=== PATIENT | female | born 1965 | race Caucasian/White ===

== ENCOUNTER 2017-06-26 15:10 | Emergency (ER) | payer OTHER ==
[~2017-06-26] VITALS: Ht 157.5 cm; Wt 58.3 kg
[~2017-06-26 15:10] MED LIST: AMOXICILLIN500 M1 PO; CEPHALEXIN500 M2 PO; ESKALITH300 M1 PO; HYDROCODONE-AP1 EA10 PO; MAGNESIUM250 MG PO; MICRONOR0.35 MG PO; NEURONTIN300 MG PO; REQUIP0.5 MG PO; SILVADENE20 GM TP; TRAZODONE HCL50 MG PO; VIT B1; VITAMIN D31000 UNIT PO; VITAMINS; WELLBUTRIN XL300 MG PO
[2017-06-26] MEDS ORDERED: MOTRIN800 MG PO (19:12)
[2017-06-26 20:20] VITALS: BP 120/79
== END 2017-06-26 20:21 | disposition home or self-care (01) ==
LOC: EME 15:10
DX: S50.01XA Contusion of right elbow, initial encounter (principal); W19.XXXA Unspecified fall, initial encounter; F17.200 Nicotine dependence, unspecified, uncomplicated
CPT/HCPCS: 73080; 99281; 99284

== ENCOUNTER 2018-04-01 19:49 | Emergency (ER) | payer OTHER ==
[~2018-04-01] VITALS: Ht 160 cm; Wt 61.0 kg
[~2018-04-01 19:49] MED LIST changes: +MOTRIN800 MG PO
[2018-04-01] MEDS ORDERED: BACTRIM,SEPT1 TABLET PO (22:07)
[2018-04-01] MEDS ORDERED: KEFLEX500 MG PO (22:07)
[2018-04-01 22:29] VITALS: BP 137/91
== END 2018-04-01 22:10 | disposition home or self-care (01) ==
LOC: EME 19:49
DX: S51.012A Laceration without foreign body of left elbow, initial encounter (principal); L08.9 Local infection of the skin and subcutaneous tissue, unspecified; W22.09XA Striking against other stationary object, initial encounter; F17.200 Nicotine dependence, unspecified, uncomplicated
CPT/HCPCS: 73080; 99281; 99285